=== PATIENT | female | born 1975 | race Caucasian/White ===

== ENCOUNTER → 2019-08-17 15:50 | Outpatient (BNVA) | payer BC, MEDICAID, SELFPAY | PROVIDERS: Family Provider Family Medicine; PCP Family Medicine; Visit Provider Nurse Practitioner Women's Health | DX: E03.9 Hypothyroidism, unspecified (principal) | CPT/HCPCS: 84443 ==

== ENCOUNTER → 2019-09-02 13:43 | Outpatient (BNVA) | payer BC, MEDICAID, SELFPAY | PROVIDERS: Family Provider Family Medicine; PCP Family Medicine; Visit Provider Nurse Practitioner Women's Health | DX: N83.291 Other ovarian cyst, right side (principal); N83.292 Other ovarian cyst, left side | CPT/HCPCS: 76830 ==

== ENCOUNTER → 2019-10-27 12:26 | Outpatient (BNVA) | payer MEDICAID, SELFPAY | PROVIDERS: Family Provider Family Medicine; PCP Family Medicine; Visit Provider Obstetrics & Gynecology | DX: N92.0 Excessive and frequent menstruation with regular cycle (principal); N39.46 Mixed incontinence | CPT/HCPCS: 80053; 85027 ==

== ENCOUNTER 2020-08-11 12:37 | Emergency (ER) | payer OTHER, MEDICAID, SELFPAY ==
[2020-08-11 12:40] VITALS: BP 136/71; PULSE 95; RESP 16; TEMP 36.8; O2SAT 98; BMI 28.3
--- NOTE | 2020-08-11 13:24 | CTR_ITS ---
PROCEDURE INFORMATION: Exam: CT Abdomen And Pelvis With Contrast Exam date and time: 08/11/2020 1:24 PM Age: 44 years old Clinical indication: Abdominal pain; Localized; Upper; Additional info: Ruq pain TECHNIQUE: Imaging protocol: Computed tomography of the abdomen and pelvis with contrast. Axial, coronal and sagittal reformatted images were created and reviewed. Radiation optimization: All CT scans at this facility use at least one of these dose optimization techniques: automated exposure control; mA and/or kV adjustment per patient size (includes targeted exams where dose is matched to clinical indication); or iterative reconstruction. Contrast material: OMNI 300; Contrast volume: 95 ml; Contrast route: INTRAVENOUS (IV); COMPARISON: US transvaginal [id number] 09/02/2019 1:45 PM RADIATION DOSE METRICS: Total DLP (mGy-cm): 1308.23 FINDINGS: Liver: Unremarkable. Gallbladder and bile ducts: Cholelithiasis and mild gallbladder distention. Cannot exclude mild gallbladder wall thickening. Pancreas: Unremarkable. Spleen: Unremarkable. Adrenal glands: Normal. No mass. Kidneys and ureters: 4 mm low-density left renal lesion, too small to characterize. No radiodense calculi. No hydronephrosis. Stomach and bowel: No bowel wall thickening. No obstruction. No pneumatosis. Appendix: Normal. Intraperitoneal space: Trace nonspecific free pelvic fluid, likely physiologic. No organized fluid collection. No free air. Vasculature: Unremarkable. No aneurysm. Lymph nodes: No pathologically enlarged lymph nodes. Urinary bladder: Unremarkable as visualized. Reproductive: 5.3 x 4.1 cm right adnexal cystic lesion. Bones/joints: No acute osseous abnormality. Osteopenia. Soft tissues: Breast implants in place. CT/CT abdomen pelvis w con* [id number] IMPRESSION: 1. Cholelithiasis and mild gallbladder distention. Cannot exclude mild gallbladder wall thickening. If clinically indicated, ultrasound or HIDA scan would provide a more sensitive evaluation for acute gallbladder pathology. 2. 5.3 x 4.1 cm right adnexal cystic lesion. If clinically indicated, pelvic ultrasound may be obtained for further evaluation. 3. Additional findings, as above. COMMENTS: Consistent with the [employer]'s Incidental Findings Committee white paper (J Am Nathaniel Radiol 2018): Any incidental renal lesion less than 1 cm or classified as too small to characterize, or any incidental cystic renal lesion characterized as simple-appearing, is likely benign. No follow-up imaging is recommended for these lesions per consensus recommendations based on imaging criteria. Radiation Dose CTDIVOL = (mGy): DLP = 1308.23 (mGy-cm)
--- NOTE | 2020-08-11 14:08 | W.ED.ABDPA2 ---
HPI - Abdominal Pain General: Chief Complaint: Abdominal Pain Stated Complaint: Stomach pain Time Seen by Provider: 08/11/20 13:24 History of Present Illness: HPI narrative: Patient states she has had right upper quadrant pain for the last couple days. Says she just did not feel right in her stomach. After eating last night she got sick but did not vomit is been nauseated and pain is now in her right upper quadrant radiating to her right shoulder. MD elicited complaint: abdominal pain Onset (ago): day(s) Pain Consistency: constant Location: RUQ Severity: mild Quality: aching Radiation: other (Right shoulder) Exacerbating factors: eating Relieving factors: nothing Associated Symptoms: Reports nausea; Denies chills and fever(s) Related Data: Date of Last Menstrual Period: 04/26/20 Review of Systems Const: Denies: fever(s), chills or body aches Eyes: Denies: change in vision or blurry vision ENMT: Denies: throat pain or nasal congestion Card: Denies: chest pain or dyspnea on exertion Resp: Denies: dyspnea, productive cough or non-productive cough GI: Reports: abdominal pain and nausea Musc: Denies: extremity pain Skin/Breast: Denies: rash Neuro: Denies: headache(s) Psych: Denies: anxiety or depression Merritt/Lymph: Denies: easy bruising PFSH ED PFSH: Medical History (Updated 08/11/20 @ 16:06 by FEI Nascimento) Hypertension Hypothyroidism Menorrhagia with regular cycle No pertinent past medical history neghx; dm,dvt/pe PCP: Dr. Sung Ovarian cyst, right Stress bladder incontinence, female Surgical History H/O breast augmentation (2011) Family History (Updated 06/27/20 @ 14:47 by Ivelisse Alex) Mother Hypertension Sister Family history of thyroid problem Grandmother Breast cancer Maternal grandmother---dx age 80's Denies family history of Colon cancer Ovarian cancer Diabetes Heart disease Hyperlipidemia Uterine cancer Stroke Female Reproductive History: Date of last menstrual period: 04/26/20 Physical Exam Const: COMMON NORMALS: no acute distress, average body habitus and patient oriented x3 HENMT: COMMON NORMALS: normocephalic HEAD & SCALP: normal to inspection and normocephalic FACE & SINUS: normal facial exam Eye: COMMON NORMALS: conjunctivae normal GENERAL EYE: appearance normal, both eyes and all related structures CONJUNCTIVA: Yes conjunctivae normal Neck/C-Spine: COMMON NORMALS: no JVD Chest: COMMONS NORMALS: normal inspection of the chest Resp: COMMON NORMALS: normal respiratory effort Cardio: COMMON NORMALS: no JVD, regular rate and regular rhythm RATE: regular rate RHYTHM: regular rhythm GI: COMMON NORMALS: Soft to palpation INSPECTION: Yes normal to inspection PALPATION: Yes Soft to palpation and Yes Tenderness to palpation present (GI) Details: RUQ Extremity: COMMON NORMALS: normal to inspection and full ROM Neuro: COMMON NORMALS: patient oriented x3 Course Vital Signs: Vital signs: Vital Signs Temperature 98.3 F 08/11/20 12:40 Pulse Rate 84 08/11/20 16:51 Respiratory Rate 15 08/11/20 15:31 Blood Pressure 158/106 08/11/20 16:51 Pulse Oximetry 99 08/11/20 16:51 MDM - Abdominal Pain MDM Narrative: Medical decision making narrative: Patient presenting with right upper quadrant pain the last couple days. She responded well to pain medication. CT showed cholelithiasis possible mild gallbladder wall thickening. Labs showed a very mild leukocytosis, chemistries were normal. Patient was encouraged to be low-fat, gallbladder type diet. Consult was made to follow-up with surgeon she request Dr. Langleycase management will contact them on Thursday for follow-up appointment. Patient encouraged to return here for worsening symptoms. Lab Data: Labs: Lab Results 08/11/20 08/11/20 08/11/20 Range/Units 13:50 13:50 14:03 WBC 12.0 H (4.0-10.0) 10^3/ uL RBC 4.64 (4.1-5.3) 10^6/u L Hgb 14.2 (11.5-15.3) g/dL Hct 42.4 (37.0-47.0) % MCV 91.4 (81-99) fL MCH 30.6 (28.0-34.0) pg MCHC 33.5 (30.0-36.0) g/dL RDW 11.4 L (12.1-15.1) % Plt Count 377 (130-400) 10^3/c mm MPV 9.4 (7.4-10.4) fL Neut % (Auto) 78.2 % Lymph % (Auto) 14.5 % [place] % (Auto) 5.8 % Eos % (Auto) 0.7 % Baso % (Auto) 0.4 % Neut # (Auto) 9.40 H (1.8-7.7) 10^3/u L Lymph # (Auto) 1.8 (0.8-4.8) 10^3/u L [place] # (Auto) 0.7 (0.2-0.9) 10^3/u L Eos # (Auto) 0.1 (0.0-0.8) 10^3/u L Baso # (Auto) 0.1 (0.0-0.1) 10^3/u L Nucleated RBC % (a uto) 0 % Nucleated RBCs # 0.0 /100WBC Sodium (136-145) mmol/L Potassium (3.5-5.1) mmol/L Chloride (98-107) mmol/L Carbon Dioxide (22-29) mmol/L Anion Gap (5-19) BUN (6-20) mg/dL Creatinine (0.5-0.9) mg/dL GFR Calculation (90-130) mL/min Glucose (65-115) mg/dL Calculated Osmolal ity (285-295) mOsm/k g Calcium (8.5-10.5) mg/dL Total Bilirubin (0.15-1.2) mg/dL AST (0-32) U/L ALT (0-33) U/L Alkaline Phosphata se (35-105) IU/L Total Protein (6.6-8.7) g/dL Albumin (3.5-5.2) g/dL Globulin (1.3-4.6) g/dL Lipase (13-60) U/L HCG, Qual Negative (Negative) Urine Color Colorless (Yellow) Urine Appearance Clear (CLEAR) Urine pH 7 (5-7) Ur Specific Gravit y 1.005 (1.005-1.030) Urine Protein Neg (Negative) Urine Glucose (UA) Norm (Normal) Urine Ketones Negative (Negative) Urine Blood Neg (Negative) Urine Nitrate Negative (Negative) Urine Bilirubin Neg (Negative) Urine Urobilinogen Norm (Negative) mg/dL Ur Leukocyte Shila ase Negative (Negative) 08/11/20 Range/Units 14:03 WBC (4.0-10.0) 10^3/ uL RBC (4.1-5.3) 10^6/u L Hgb (11.5-15.3) g/dL Hct (37.0-47.0) % MCV (81-99) fL MCH (28.0-34.0) pg MCHC (30.0-36.0) g/dL RDW (12.1-15.1) % Plt Count (130-400) 10^3/c mm MPV (7.4-10.4) fL Neut % (Auto) % Lymph % (Auto) % [place] % (Auto) % Eos % (Auto) % Baso % (Auto) % Neut # (Auto) (1.8-7.7) 10^3/u L Lymph # (Auto) (0.8-4.8) 10^3/u L [place] # (Auto) (0.2-0.9) 10^3/u L Eos # (Auto) (0.0-0.8) 10^3/u L Baso # (Auto) (0.0-0.1) 10^3/u L Nucleated RBC % (a uto) % Nucleated RBCs # /100WBC Sodium 136 (136-145) mmol/L Potassium 3.7 (3.5-5.1) mmol/L Chloride 102 (98-107) mmol/L Carbon Dioxide 24 (22-29) mmol/L Anion Gap 13.7 (5-19) BUN 10 (6-20) mg/dL Creatinine 0.6 (0.5-0.9) mg/dL GFR Calculation 109.1 (90-130) mL/min Glucose 98 (65-115) mg/dL Calculated Osmolal ity 281 L (285-295) mOsm/k g Calcium 9.2 (8.5-10.5) mg/dL Total Bilirubin 0.3 (0.15-1.2) mg/dL AST 14 (0-32) U/L ALT 9 (0-33) U/L Alkaline Phosphata se 53 (35-105) IU/L Total Protein 6.7 (6.6-8.7) g/dL Albumin 3.9 (3.5-5.2) g/dL Globulin 2.8 (1.3-4.6) g/dL Lipase 25 (13-60) U/L HCG, Qual (Negative) Urine Color (Yellow) Urine Appearance (CLEAR) Urine pH (5-7) Ur Specific Gravit y (1.005-1.030) Urine Protein (Negative) Urine Glucose (UA) (Normal) Urine Ketones (Negative) Urine Blood (Negative) Urine Nitrate (Negative) Urine Bilirubin (Negative) Urine Urobilinogen (Negative) mg/dL Ur Leukocyte Shila ase (Negative) Discharge Plan Discharge Patient Disposition: Home Clinical Impression: Ovarian cyst, right Cholelithiases Qualifiers: Cholelithiasis location: gallbladder Cholecystitis presence: without cholecystitis Biliary obstruction: without biliary obstruction Qualified Code(s): K80.20 - Calculus of gallbladder without cholecystitis without obstruction Condition: Stable Prescriptions: New hydrocodone-acetaminophen 5-325 mg tablet 1 tab PO TID PRN (Reason: pain) Qty: 7 RF: 0 Zofran 4 mg tablet 4 mg PO Q8H 3 Days Qty: 9 RF: 0 No Action lisinopril-hydrochlorothiazide 20-25 mg tablet 1 tab PO DAILY RF: 0 levothyroxine 75 mcg capsule 75 mcg PO DAILY Qty: 90 RF: 0 Discharge Orders: Discharge ED (Routine); Ordered 08/11/20 Ordered By: Serge Cochran Referrals: Zhang Sung DO [Primary Care Provider] - Discharge Diet: As Directed Discharge Activity: Increase activity as tolerated Patient Instructions: Cholelithiasis, Opioid Safety Activity Restrictions/Additional Instructions: Follow-up with medical provider as directed. Take medications as prescribed. Return to the ER or your medical provider if condition worsens. Please read and understand discharge instructions. If any questions ask please. Hospital will contact you with an appointment on Thursday for follow-up with your surgeon. Coding Level of Care Code ED Medicinal Plant Picker for Chg Fwd Exam Comprehensive
[2020-08-11 14:13] LABS: Add Urine Microscopic? NO; Charge for UA Resulting for Rev
[2020-08-11 14:19] LABS: Basophils # 0.1 10^3/uL (0.0-0.1); Basophils % 0.4 %; Eosinophils # 0.1 10^3/uL (0.0-0.8); Eosinophils % 0.7 %; Hematocrit 42.4 % (37.0-47.0); Hemoglobin 14.2 g/dL (11.5-15.3); Lymphocytes # 1.8 10^3/uL (0.8-4.8); Lymphocytes % 14.5 %; Mean Corpuscular HGB Conc 33.5 g/dL (30.0-36.0); Mean Corpuscular Hemoglobin 30.6 pg (28.0-34.0); Mean Corpuscular Volume 91.4 fL (81-99); Mean Platelet Volume 9.4 fL (7.4-10.4); Monocytes # 0.7 10^3/uL (0.2-0.9); Monocytes % 5.8 %; Neutrophils % 78.2 %; Nucleated Red Blood Cells % 0 %; Platelet Count 377 10^3/cmm (130-400); Red Blood Count 4.64 10^6/uL (4.1-5.3); Red Cell Distribution Width 11.4 % (12.1-15.1)
[2020-08-11 14:21] LABS: HCG Qualitative Urine. Negative (Negative)
[2020-08-11 14:22] LABS: Bilirubin Urine Neg (Negative); Blood Urine Neg (Negative); Glucose Urine UA Norm (Normal); Ketones Urine Negative (Negative); Leukocyte Esterase Urine Negative (Negative); Nitrate Urine Negative (Negative); Protein Urine Neg (Negative); Specific Gravity, Urine 1.005 (1.005-1.030); Urine Appearance Clear (CLEAR); Urine Color Colorless (Yellow); Urobilinogen Urine Norm (Negative); pH Urine 7 (5-7)
[2020-08-11 14:29] LABS: Alanine Aminotransferase 9 U/L (0-33); Albumin Level 3.9 g/dL (3.5-5.2); Alkaline Phosphatase 53 IU/L (35-105); Anion Gap 13.7 (5-19); Aspartate Amino Transferase 14 U/L (0-32); Blood Urea Nitrogen 10 mg/dL (6-20); Calcium 9.2 mg/dL (8.5-10.5); Carbon Dioxide 24 mmol/L (22-29); Chloride 102 mmol/L (98-107); Creatinine Clr Calc Pharmacy 115.4109; Globulin 2.8 g/dL (1.3-4.6); Glomerular Filtration Rate 109.1 mL/min (90-130); Glucose 98 mg/dL (65-115); Lipase 25 U/L (13-60); Osmolality Calculated 281 mOsm/kg (285-295); Potassium 3.7 mmol/L (3.5-5.1); Sodium 136 mmol/L (136-145); Total Bilirubin 0.3 mg/dL (0.15-1.2); Total Protein 6.7 g/dL (6.6-8.7)
[2020-08-11] MEDS: iohexol 300 mg/mL 100 mL Btl IV (14:55)
[2020-08-11 15:31] VITALS: PULSE 86; RESP 15; O2SAT 98
[2020-08-11] MEDS: sodium chloride 0.9% 1,000 ML 999 ML IV (15:35)
[2020-08-11 16:51] VITALS: BP 158/106; PULSE 84; O2SAT 99
--- NOTE | 2020-08-13 09:30 | PC.SOCIAL ---
emailed [facility] surgery clinic with referral for Dr Langley by Serge ENAMORADO for cholelithiasis. They will call patient with appointment.
--- NOTE | 2020-08-24 15:13 | DCPLANNER ---
Patient had a follow up appointment scheduled for 08.14.[address] Hicks at [facility] General Surgery - patient did attend appointment.
== END 2020-08-11 16:56 | disposition home or self-care (01) ==
PROVIDERS: Emergency Provider Nurse Practitioner Family; PCP Family Medicine
DX: K80.20 Calculus of gallbladder without cholecystitis without obstruction (principal); N83.201 Unspecified ovarian cyst, right side; I10 Essential (primary) hypertension
CPT/HCPCS: 36415; 74177; 80053; 81003; 81025; 83690; 85025; 96360; 99283; J7030; Q9967

== ENCOUNTER → 2020-08-17 08:36 | Outpatient (BNVA) | payer MEDICAID, SELFPAY | PROVIDERS: PCP Family Medicine; Visit Provider Surgery | DX: Z20.822 Contact with and (suspected) exposure to COVID-19 (principal) | CPT/HCPCS: 87635 ==

== ENCOUNTER 2020-08-22 06:21 | Day surgery (SDC) | payer MEDICAID, SELFPAY ==
[2020-08-21 13:16] VITALS: BMI 27.4
[2020-08-22] VITALS (8 sets, daily range): BP systolic 120–146; BP diastolic 75–100; PULSE 77–113; RESP 16–18; TEMP 36.2–37; O2SAT 96–100
--- NOTE | 2020-08-22 06:55 | W.PM.OPSUD ---
Surgery/Procedure H&P Update DATE OF PROCEDURE: August 22, 2020 DATE H&P PERFORMED: 08/14/20 H&P UPDATE INFORMATION: I have reviewed H&P completed within last 30 days, I have examined patient prior to procedure and No changes to prior documentation PREOP DIAGNOSIS: Cholelithiasis PLANNED PROCEDURE: Operation Date: 08/22/20 08:00 Proposed Procedures p Laparoscopic Cholecystectomy 83008 k80.20(Not Applicable) - Roel Hicks MD
[2020-08-22] MEDS: sodium chloride 0.9% 1,000 ML 30 ML IV (07:21)
[2020-08-22 07:23] LABS: OR HCG Qualitative Urine Negative (Negative)
--- NOTE | 2020-08-22 07:26 | ANES.PREANE2 ---
Pre-Anesthetic Assessment Pre-Anesthetic Assessment: Height/Weight: Height 1.57 m Weight 68.039 kg Temp Pulse Resp BP Pulse Ox 97.2 F L 86 18 120/83 100 08/22/20 06:46 08/22/20 06:46 08/22/20 06:46 08/22/20 06:46 08/22/20 06:46 Preop Diagnosis: Cholelithiasis Proposed Procedure: Operation Date: 08/22/20 08:00 Proposed Procedures p Laparoscopic Cholecystectomy 34000 k80.20(Not Applicable) - Roel Hicks MD Familial anesthetic complications: none Was Beta Allyson taken within 24 hours: N/A Was Clonidine taken within 24 hours: N/A Last intake: Intake Last Liquid Date 08/21/20 Last Liquid Time 19:30 Last Solid Date 08/21/20 Last Solid Time 19:30 Last Intake: 19:30 Social: Social History: No alcohol and No tobacco Exam: Pre-Anes Outpt Exam: alert, oriented x 3, clear to auscultation bilaterally and regular rate & rhythm Airway: Submandibular: WNL Cervical ROM: WNL MP: 1 Dentition: Full Pulmonary: Pulmonary: None reported CV/HEM: CV/HEM: HTN : : None reported Hepatic: Hepatic: None reported GI: GI: GERD (OTC meds) Metabolic: Metabolic: Thyroid Musc/skel: Musc/skel: None reported Neuropsych: Neuropsych: None reported Anesthetic Plan: ASA status: 2 Anesthesia: General Meds/Allergies Current Medications: Current Medications Generic Name Dose Route Start Last Admin Trade Name Freq PRN Reason Stop Dose Admin Sodium Chloride 1,000 mls @ 30 ml s/hr 08/22/20 06:45 08/22/20 07:21 Sodium Chloride 0.9% IV 08/23/20 06:44 30 mls/hr .Q24H ABEL Administration PFSH Anesthesia PFSH: Medical History Hypertension Hypothyroidism Menorrhagia with regular cycle Ovarian cyst, right Stress bladder incontinence, female Surgical History H/O breast augmentation (2011) Family History Mother Hypertension Sister Family history of thyroid problem Grandmother Breast cancer Maternal grandmother---dx age 80's Denies family history of Colon cancer Ovarian cancer Diabetes Heart disease Hyperlipidemia Uterine cancer Stroke Social History Smoking and tobacco status: never smoked Female Reproductive History: Date of last menstrual period: 04/26/20 Data Anesthesia Other Labs: Laboratory Results - last 48 hr 08/22/20 06:44 Urine HCG, Qual Negative Cardiac Studies: No Data to Display
--- NOTE | 2020-08-22 08:32 | PM.OP ---
Operative Report Date of procedure: August 22, 2020 Pre-op Diagnosis: Cholelithiasis Post-op Diagnosis: Cholelithiasis Acute on chronic cholecystitis with thickened gallbladder wall Procedure Done: Laparoscopic cholecystectomy Specimens removed/disposition: Gallbladder Surgeon: Roel Hicks Anesthesia: General Condition: stable Disposition: PACU Procedure: The patient was taken to the operating room and was intubated under general anesthesia. After the antibiotic had been administered, the abdomen was prepped and draped in a sterile manner. Using a #15 blade, a 1 centimeter infraumbilical curvilinear incision was made and using an open Jelena technique the peritoneal cavity was entered. A 10 millimeter port was placed and 15 millimeters of pneumoperitoneum was created. A 10 millimeter, 30 degrees scope was then introduced. Three 5 millimeter ports were placed in the epigastric, midclavicular and the anterior axillary line two fingerbreadths below the costal margin on the right side under the direct visualization. Ratcheted forceps were introduced into the lateral most port and was used to retract the fundus of the gallbladder cephalad and using forceps the infundibulum of the gallbladder was retracted laterally. The gallbladder wall was thickened. Using L-hook cautery the peritoneum overlying the Calot's triangle was opened medially and laterally until the cystic duct and the cystic artery were skeletonized. Dissection was carried along the body of the gallbladder and after ensuring critical view of safety, 4 clips applied on the cystic duct and 3 clips applied on the cystic artery and cut leaving, 3 clips on the remaining portion of the duct and 2 clips on the remaining portion of the artery. The rest of the gallbladder was dissected off the liver using L-hook cautery. There was no bleeding or bile leaking noted from the gallbladder fossa and the clips appeared to be in place. An EndoCatch bag was introduced to remove the gallbladder. All the ports were removed under direct visualization and there was no bleeding noted from the port sites. The fascia of the umbilicus was closed using [id number] 0 Vicryl sutures and the subcutaneous tissue was approximated using 3-0 Vicryl sutures. The skin at all four ports were closed using 4-0 Monocryl and Dermabond. A total of 10 millimeters of 0.5% Marcaine was infiltrated around the port sites. The patient was stable throughout the procedure.
--- NOTE | 2020-08-22 09:01 | SUR.PHASEI ---
PT SLEEPY WITH GOOD RESP NOTED VSS IV PATENT TO LT HAND ABD SOFT WITH 4 SITES D/I PT AWAKES TO VOICE , C/O OF PAIN SEE MED GIVEN BY PHYSICIAN NON INVASIVE CARDIOLOGIST AT BEDSIDE.
--- NOTE | 2020-08-22 09:36 | PC.NURSE ---
Pt and family member instructed to pear picker medications x3 at [facility] in [place]. Also instructed to not drink alcohol or drive for next 24 hrs or while taking [place] as prescribed. Pt and family given verbal direction and written instruction packet with information on medications, post-op orders from Dr. Hicks, and follow-up appointment time.
--- NOTE | 2020-08-22 14:31 | ANE.PACU2 ---
Inpatient post-anesthesia follow up: Airway intact: Yes Vital signs: Temperature 97.7 F Pulse Rate 81 Respiratory Rate 16 Blood Pressure 122/75 Pulse Oximetry 97 Oxygen Delivery Me thod Room Air Oxygen Flow Rate 8 Fraction of Inspir ed Oxygen Hydration adequate: Yes Nausea and vomiting: No Pain level: 2 Mental status: Baseline
== END 2020-08-22 09:47 | disposition home or self-care (01) ==
PROVIDERS: Anesthesiology; PCP Family Medicine; Visit Provider Surgery
PROC: 0FT44ZZ Resection of Gallbladder, Percutaneous Endoscopic Approach (ICD-10-PCS; CPT 47562; principal; 2020-08-22 08:00)
DX: K80.10 Calculus of gallbladder with chronic cholecystitis without obstruction (principal); I10 Essential (primary) hypertension; K21.9 Gastro-esophageal reflux disease without esophagitis; E03.9 Hypothyroidism, unspecified; Z82.49 Family history of ischemic heart disease and other diseases of the circulatory system
CPT/HCPCS: 47562; 81025; 84703; 88304; 96365; J0690; J1100; J1170; J1885; J2405; J2704; J2710; J3010; J3490; J7030

== ENCOUNTER → 2020-09-06 13:23 | Outpatient (BNVA) | payer MEDICAID, SELFPAY | PROVIDERS: PCP Family Medicine; Visit Provider Nurse Practitioner Women's Health | DX: Z01.419 Encounter for gynecological examination (general) (routine) without abnormal findings (principal); E03.9 Hypothyroidism, unspecified; N92.0 Excessive and frequent menstruation with regular cycle; N83.201 Unspecified ovarian cyst, right side; N88.8 Other specified noninflammatory disorders of cervix uteri | CPT/HCPCS: 84443; 88175 ==

== ENCOUNTER → 2020-11-20 15:22 | Outpatient (BNVA) | payer MEDICAID, SELFPAY | PROVIDERS: PCP Family Medicine; Visit Provider Obstetrics & Gynecology | DX: N88.8 Other specified noninflammatory disorders of cervix uteri (principal) | CPT/HCPCS: 81025; 88305 ==

== ENCOUNTER → 2021-10-18 10:31 | Outpatient (BNVA) | payer MEDICAID, SELFPAY | PROVIDERS: PCP Family Medicine; Visit Provider Nurse Practitioner Women's Health | DX: E03.9 Hypothyroidism, unspecified (principal); L23.7 Allergic contact dermatitis due to plants, except food; N91.2 Amenorrhea, unspecified; Z01.419 Encounter for gynecological examination (general) (routine) without abnormal findings; N83.201 Unspecified ovarian cyst, right side; N84.1 Polyp of cervix uteri; N39.46 Mixed incontinence | CPT/HCPCS: 84443 ==

== ENCOUNTER 2021-10-29 11:30 | Outpatient (CLI) | payer MEDICAID, SELFPAY ==
--- NOTE | 2021-10-29 11:41 | MM_ITS ---
WS: [id number] BILATERAL SCREENING DIGITAL BREAST MAMMOGRAPHY WITH FRED DISPLACEMENT VIEWS. CAD PERFORMED. HISTORY: Screening. COMPARISON: 01/24/2009 Bilateral craniocaudal and mediolateral oblique views are performed with tomosynthesis and SM. Fred displacement views in CC and MLO projection also performed. Breasts composition: The breasts are heterogeneously dense, which may obscure small masses. Implants are intact. No capsular contraction. No suspicious mass or calcification. MM/[place] [facility] [place] [id number] IMPRESSION: BI-RADS: 2-Benign FOLLOW-UP: 1 Year Follow-up
== END 2021-10-29 11:31 | disposition home or self-care (01) ==
LOC: RAD 11:32
PROVIDERS: PCP Family Medicine; Visit Provider Nurse Practitioner Women's Health
DX: Z12.31 Encounter for screening mammogram for malignant neoplasm of breast (principal)
CPT/HCPCS: 77063; 77067

== ENCOUNTER → 2022-11-21 12:17 | Outpatient (BNVA) | payer MEDICAID, SELFPAY | PROVIDERS: PCP Family Medicine; Visit Provider Nurse Practitioner Women's Health | DX: N83.291 Other ovarian cyst, right side (principal); N80.03 Adenomyosis of the uterus | CPT/HCPCS: 76830; 84443 ==

== ENCOUNTER 2022-12-12 07:47 | Outpatient (CLI) | payer MEDICAID, SELFPAY ==
--- NOTE | 2022-12-12 08:13 | MM_ITS ---
WS: [id number] BILATERAL SCREENING DIGITAL BREAST MAMMOGRAPHY WITH FRED DISPLACEMENT VIEWS. CAD PERFORMED. HISTORY: SCREEN COMPARISON: 10/29/2021 and 01/24/2009 Bilateral craniocaudal and mediolateral oblique views are performed with tomosynthesis and SM. Fred displacement views in CC and MLO projection also performed. Breasts composition: The breasts are heterogeneously dense, which may obscure small masses. Implants are intact. No extravasation or capsular contraction. No suspicious mass or calcification. IMPRESSION: MM/[place] [id number] BI-RADS: 2-Benign FOLLOW-UP: 1 Year Follow-up
== END 2022-12-12 07:48 | disposition home or self-care (01) ==
LOC: RAD 07:47
PROVIDERS: PCP Family Medicine; Visit Provider Nurse Practitioner Women's Health
DX: Z12.31 Encounter for screening mammogram for malignant neoplasm of breast (principal)
CPT/HCPCS: 77063; 77067

== ENCOUNTER → 2023-12-17 08:29 | Outpatient (BNVA) | payer OTHER, MEDICAID, SELFPAY | PROVIDERS: PCP Family Medicine; Visit Provider Family Medicine | DX: I10 Essential (primary) hypertension (principal); E03.9 Hypothyroidism, unspecified | CPT/HCPCS: 80053; 80061; 84443 ==

== ENCOUNTER → 2024-11-29 09:25 | Outpatient (BNVA) | payer OTHER, SELFPAY | PROVIDERS: PCP Family Medicine; Visit Provider Nurse Practitioner Women's Health | DX: E03.9 Hypothyroidism, unspecified (principal); R53.83 Other fatigue; N91.2 Amenorrhea, unspecified; E66.811 Obesity, class 1; I10 Essential (primary) hypertension; R23.2 Flushing | CPT/HCPCS: 80053; 82306; 82607; 82670; 82728; 82746; 83001; 83036; 83525; 83540; 84146; 84439; 84443; 84481; 85025 ==

== ENCOUNTER → 2024-12-30 11:07 | Outpatient (BNVA) | payer OTHER, SELFPAY | PROVIDERS: PCP Family Medicine; Visit Provider Nurse Practitioner Women's Health | DX: R23.2 Flushing (principal); R53.82 Chronic fatigue, unspecified; R68.82 Decreased libido | CPT/HCPCS: 82670; 83001; 84270; 84402; 84403 ==